=== PATIENT | female | born 1990 | race African-American/Black ===

== ENCOUNTER 2025-04-17 19:35 | Emergency (ER) | payer OTHER ==
[~2025-04-17] VITALS: Ht 167.6 cm; Wt 70.3 kg
[2025-04-17] MEDS ORDERED: HYDROCODONE/ACETA 5/325 TAB PO ONE (21:30)
[2025-04-18] MEDS ORDERED: HYDROCODON-ACE1 EA10 PO (00:14)
[2025-04-18] MEDS ORDERED: HYDROCODONE BIT/ACETAMINOPHEN 5/325 MG 1 TAB HOME.PACK PO ONE (00:30)
[2025-04-18 00:34] VITALS: BP 117/88
== END 2025-04-18 00:34 | disposition home or self-care (01) ==
LOC: ED 19:35
DX: S16.1XXA Strain of muscle, fascia and tendon at neck level, initial encounter (principal); S30.0XXA Contusion of lower back and pelvis, initial encounter; V69.9XXA Occupant (driver) (passenger) of heavy transport vehicle injured in unspecified traffic accident, initial encounter; Z88.8 Allergy status to other drugs, medicaments and biological substances
CPT/HCPCS: 70450; 72125; 72128; 72131; 72192; 84703; 99284-25; A9270